=== PATIENT | female | born 1965 | race Caucasian/White ===

== ENCOUNTER 2023-12-05 11:33 | Outpatient (AMB) | payer BC, SELFPAY ==
--- NOTE | 2023-12-05 11:35 | A.OFFVIS_ITS ---
Vital Signs 12/05/23 11:39 Height 5 ft 2 in Weight 175 lb BMI 32.0 BP 127/66 Blood Pressure Location Lt brachial Position Sitting Pulse 68 Pulse Source Pulse Oximeter Pulse Oximetry (%) 98 Oxygen Delivery Method Room Air Intake Visit Reasons: Low back pain Allergies No Known Allergies Allergy (Verified 12/05/23 11:39) HPI HPI Low back pain: Details: Patient is a 58 years female with history of chronic low back pain, sacroiliac joint pain, right hip pain, fibromyalgia, right knee pain, left ankle sprain, asthma, obesity, disseminated Lyme disease, polyarthralgia, lumbar DDD, ADHD, chronic fatigue syndrome, presents today for initial evaluation for right sided low back pain. Denies any recent trauma, injury or falls. She works in [place] and travels a lot. She reports falling on her right knee in [place] in June, was seen by Orthopedics and told no treatment needed. Her main concern today is right sided lower back pain with radiation into her right sacral and buttock regions and into her right lower extremity. She reports chronic SIJ pain, leg discrepancy and lower back pain for which she frequently undergoes chiropractic adjustments and massages, including for neck pain. Coughing, laughing, sneezing increases right sided low back pain. Pain is constant and is rated 5/10 at rest and 9-10/10 with movements, walking, bending, changing position, heavy lifting, sleep, work, carrying luggage or traveling. Previous lumbar and hip imaging xrays were completed at [facility], reports are not available fro review today. Denies any fever or chills, abdominal or groin pain, weakness, bladder or bowel dysfunction or saddle anesthesia. Location: Lower back pain, right hip pain, neck pain Duration: Chronic pain for 1 year, h/o mechanical fall Characteristics of symptom or complaint: Aching, dull, radiating, throbbing, pinching, cramping, hurting, sore Aggravating or associated factors: Movements, changing positiong, walking, lifting, carring a heavy bag Relieving factors: Tumeric, Ibuprofen, Tylenol, heat therapy, topical applications Treatment: Chiropractor, PT, acupuncture, massage therapy, yoga, [facility] Medical History (Updated 12/05/23 @ 15:06 by HEATHER Abad) Right knee pain (~06/2023) Sprain of ankle, left Cough Chronic sacroiliac joint pain Disseminated Lyme disease (~2014) Breast lump Headache Foot pain Fibromyalgia Shoulder pain Shoulder joint pain Joint pain Hx of small bowel obstruction Asthma Allergic rhinitis Chronic fatigue syndrome ADHD (attention deficit hyperactivity disorder) Surgical History (Updated 12/05/23 @ 15:04 by HEATHER Abad) History of removal of ovarian cyst Review of Systems Const All systems reviewed & are unremarkable except as noted in HPI and below Physical Exam Vital Signs: Last Vital Signs Pulse 68 12/05/23 11:39 BP 127/66 12/05/23 11:39 Pulse Ox 98 12/05/23 11:39 Oxygen Delivery Method Room Air 12/05/23 11:39 BMI result Body Mass Index 32.0 General: Appears afebrile. Alert and oriented. Mood and affect appropriate. Follows and participates in conversation appropriately. Respiratory effort is unlabored. No cough. Able to transition from sit to stand unassisted. Ambulates with bilaterally normal heel strike and toe off. Neck Neck: Yes normal visual inspection, Yes no lymphadenopathy, Yes supple, No anterior neck swelling, No torticollis, Yes no JVD, No prominent supraclavicular fat pad and Yes prominent dorsocervical fat pad General: Yes no CVA tenderness Back/Spine/Pelvis Other: Patient is able to walk and stand on heels and tip toes with no difficulties demonstrating good motor tone. Normal gait, no limping. Can flex forward to 75- 80 degrees and extend to 5-10 degrees before experiencing lumbar pain. Demonstrates 5/5 left and 4/5 right strength of quadriceps bilaterally as well as flexion/dorsiflexion of bilateral feet against resistance. 2+ pedal pulses bilaterally. Supine straight leg rise with dorsiflexion is positive on the right at 70 degrees. +2 patellar and achilles reflexes bilaterally. Facet loading test positive bilaterally. Temi sign, Joe?s, Ga[place]len, Pelvic compression and Stinchfield tests are positive on the right. No groin pain with I/E hip rotations. Valsalva maneuver is positive. Leg discrepancy noted, right longer than left. Back: no CVA tenderness Cervical Spine: cervical ROM normal (mildly restricted on the left with lateral rotation and extension), cervical muscular tenderness, pain with cervical ROM, cervical spasm, No Cervical spine tenderness and No step off deformity Thoracic/Lumbar Spine: thoracic and lumbar spine normal to inspection, No Thoracic/lumbar spine scar(s), Lasegue's sign negative, straight leg raise negative bilaterally, pain with thoraco-lumbar ROM, paraspinal muscle tenderness, thoraco-lumbar ROM limited, No thoracic spinal tenderness and lumbar spinal tenderness (L4-S1) Pelvis: buttock tenderness on the right and no sciatic notch tenderness Sacroiliac joints: on the right tender to palpation and on the left nontender Extrem General: Yes capillary refill normal, Yes no clubbing, cyanosis or edema and Yes no calf tenderness Results Reviewed Results Reviewed: No imaging results are available for review today. Assessment & Plan Assessment & Plan (1) Right lumbosacral radiculopathy: Code(s): M54.17 - Radiculopathy, lumbosacral region Category: Medical (2) Lumbar degenerative disc disease: Code(s): M51.369 - Other intervertebral disc degeneration, lumbar region without mention of lumbar back pain or lower extremity pain Category: Medical (3) Lumbosacral spondylosis: Code(s): M47.817 - Spondylosis without myelopathy or radiculopathy, lumbosacral region Category: Medical (4) Chronic sacroiliac joint pain: Code(s): M53.3 - Sacrococcygeal disorders, not elsewhere classified; G89.29 - Other chronic pain Category: Medical (5) Right lumbosacral radiculopathy: Code(s): M54.17 - Radiculopathy, lumbosacral region Category: Medical (6) Cervicalgia: Code(s): M54.2 - Cervicalgia Category: Medical (7) Cervical spondylosis: Code(s): M47.812 - Spondylosis without myelopathy or radiculopathy, cervical region Category: Medical (8) Obesity (BMI 30.0-34.9): Code(s): E66.811 - Obesity, class 1 Category: Medical Plan Patient with chronic low back pain, worsening on right side and chronic SIJ pain which has been resistant to multiple courses of PT, chiropractic adjustments, weekly massages, acupuncture, yoga, oral and topical medications. We will proceed with MRI of the lumbar spine and CT scan of sacral areas to assess for neural integrity and compression and assess degree of degenerative changes. She also reports chronic neck pain with limited ROM on the left. Will send for xray. She requests to complete imaging at [facility] due to claustrophobia. Request sent to [facility] for recent right hip xray and previous lumbar spine xray reports. Discussed interventional treatments for current pain generators, including diagnostic vs therapeutic injections, neuromodulation and RFA procedures. All questions and concerns have been answered and patient agreed with the plan. Follow up for imaging results and sooner as needed. Orders: Orders CT sacrum Today F40.240 - Claustrophobia, G89.29 - Other chronic pain, M53.3 - Sacrococcygeal disorders, not elsewhere classified, M54.17 - Radiculopathy, lumbosacral region MR lumbar spine wo con Today F40.240 - Claustrophobia, G89.29 - Other chronic pain, M47.817 - Spondylosis without myelopathy or radiculopathy, lumbosacral region, M51.369 - Other intervertebral disc degeneration, lumbar region without mention of lumbar back pain or lower extremity pain, M53.3 - Sacrococcygeal disorders, not elsewhere classified, M54.17 - Radiculopathy, lumbosacral region XR cervical spine 4V Today M47.812 - Spondylosis without myelopathy or radiculopathy, cervical region, M54.2 - Cervicalgia Coding Level of Care Code New Pt Level 4 (16168) Complex EM visit Add On G2211 Diagnoses Right lumbosacral radiculopathy M54.17 Lumbar degenerative disc disease M51.369 Lumbosacral spondylosis M47.817 Chronic sacroiliac joint pain M53.3; G89.29 Cervicalgia M54.2 Cervical spondylosis M47.812 Obesity (BMI 30.0-34.9) E66.811
[2023-12-05 11:39] VITALS: BP 127/66; PULSE 68; O2SAT 98; BMI 32.0
== END 2023-12-05 12:27 | disposition home or self-care (01) ==
PROVIDERS: PCP Physician Assistant; Visit Provider Nurse Practitioner Family
DX: M54.17 Radiculopathy, lumbosacral region (principal); M51.369 Other intervertebral disc degeneration, lumbar region without mention of lumbar back pain or lower extremity pain; M47.817 Spondylosis without myelopathy or radiculopathy, lumbosacral region; M53.3 Sacrococcygeal disorders, not elsewhere classified; G89.29 Other chronic pain; M54.2 Cervicalgia; M47.812 Spondylosis without myelopathy or radiculopathy, cervical region; E66.811 Obesity, class 1
CPT/HCPCS: 99204

== ENCOUNTER → 2023-12-05 11:33 | Outpatient (BNVA) | payer BC, SELFPAY | PROVIDERS: Visit Provider Nurse Practitioner Family ==